=== PATIENT | female | born 1970 | race Caucasian/White ===

== ENCOUNTER 2019-06-07 11:36 | Emergency (ER) | payer BC ==
[~2019-06-07] VITALS: Ht 165.1 cm; Wt 64.9 kg
[2019-06-07 11:36] VITALS: BP_SYST 113
--- NOTE | 2019-06-07 11:36 | NUR ---
BROUGHT BACK TO BED #7 AND TRIAGED. REPORT GIVEN TO TIFFANIE
--- NOTE | 2019-06-07 12:00 | NUR ---
Patient is awake, alert, and oriented. Patient states she went to [facility] for her headache and everything was clear. She reports they gave her morphine and it was not effective. Patient is complaining of pressure headache radiating from the back of her neck to her forehead 10/10 when standing. Pain is relieved by laying down. She also reports nausea; denies vomiting and diarrhea.
--- NOTE | 2019-06-07 12:04 | NUR ---
ER Dr. Gallagher at bedside examining patient.
[2019-06-07] MEDS ORDERED: KETOROLAC TROMETHAMINE 60 MG/2 ML VIAL IM ONE (12:15)
[2019-06-07] MEDS ORDERED: PROCHLORPERAZINE EDISYLATE 10 MG/2 ML VIAL IM ONE (12:15)
[2019-06-07 14:42] VITALS: BP_SYST 113
--- NOTE | 2019-06-07 14:42 | NUR ---
Patient given written and verbal discharge instructions and verbalizes understanding. ER MD discussed with patient the results and treatment provided. Patient in stable condition. ID arm band removed. Patient educated on pain management and to follow up with PMD. Pain Scale 0/10. Opportunity for questions provided and answered. Medication side effect fact sheet provided.
== END 2019-06-07 14:42 | disposition home or self-care (01) ==
LOC: SED 11:36
DX: R51 Headache (principal)
CPT/HCPCS: 70551; 72040; 81002; 81025; 93005; 96372; 99284; J1885; J0780